=== PATIENT | male | born 1965 | race Caucasian/White ===

== ENCOUNTER 2017-08-29 18:22 | Emergency (ER) | payer SELFPAY ==
[2017-08-29] MEDS ORDERED: NA CHLORIDE 0.9% 1,000 ML ONE (18:36)
[2017-08-29 18:51] LABS: Absolute Lymphocytes (CBC) 2.1 K/uL (0.7-4.9); Absolute Monocytes 0.5 K/uL (0.1-1.3); Absolute Neutrophil 5.3 K/uL (1.8-8.0); Basophils % 0.6 % (0-1.3); Eosinophils % 0.7 % (0-4.4); Hematocrit 48.8 % (39.6-49.0); Lymphocytes % 25.8 % (15.3-44.8); MCH 30.9 pg (27.0-35.0); MCV 91.7 fL (80-100); MPV 7.8 fL (7.6-11.3); Monocytes % 6.5 % (3.3-12.3); RBC Red Blood Cell Count 5.32 M/uL (4.33-5.43)
[2017-08-29 19:02] LABS: BUN Blood Urea Nitrogen 19 mg/dL (7-18); Bicarbonate 23 mmol/L (21-32); Glucose Level 97 mg/dL (74-106); Potassium 3.7 mmol/L (3.5-5.1); Sodium Level 139 mmol/L (136-145)
--- NOTE | 2017-08-29 19:09 | RAD REPORT ---
EXAM DESCRIPTION: RAD - Chest Single View - 08/29/2017 6:53 pm CLINICAL HISTORY: CHEST PAIN Chest pain. COMPARISON: No comparisons FINDINGS: Portable technique limits examination quality. The lungs are grossly clear. The heart is normal in size. No displaced fractures. IMPRESSION: No acute intrathoracic process suspected.
[2017-08-29 19:52] LABS: Urine Blood NEGATIVE (NEG); Urine Glucose NEGATIVE (NEG); Urine Protein NEGATIVE (NEG)
[2017-08-29] MEDS ORDERED: MORPHINE 4 MG/ML SYR ONE (20:33)
[2017-08-29] MEDS ORDERED: ONDANSETRON 4 MG/2 ML VIAL ONE (20:33)
--- NOTE | 2017-08-29 21:14 | EDPHYS ---
Physician Documentation [facility] Name: Brennan Holguin Age: 52 yrs Sex: Male : 1965 Arrival Date: 08/29/2017 Time: 18:23 Bed 7 Private MD: ED Physician Ayo Concepcion HPI: 08/29 21:08 This 52 yrs old Male presents to ER via EMS with complaints of Chest Pain > gs 32 y/o. 21:08 The patient or guardian complains of pain, that is acute. left shoulder. Onset: The gs symptoms/episode began/occurred just prior to arrival, 2 hour(s) ago. Modifying factors: the symptoms are alleviated by nothing. The symptoms are aggravated by lifting weight. Associated signs and symptoms: Pertinent positives: chest pain. Severity of symptoms: At their worst the symptoms were moderate, in the emergency department the symptoms have resolved. The patient has not experienced similar symptoms in the past. Historical: - Allergies: 18:30 No Known Allergies; tw2 - Home Meds: 18:30 None [Active]; tw2 - PMHx: 18:30 None; tw2 - PSHx: 18:30 None; tw2 - Immunization history:: Adult Immunizations up to date. - Social history:: Smoking status: Patient uses tobacco products, smokes one pack cigarettes per day. Patient uses alcohol, on a daily basis. patient/guardian reports recent binge of alcohol consumption. Smoking status: Patient uses tobacco products, smokes one pack cigarettes per day. - Ebola Screening: : Patient denies travel to an Ebola-affected area in the 21 days before illness onset. ROS: 21:08 Cardiovascular: Positive for chest pain. gs 21:08 Respiratory: Negative for pleurisy, shortness of breath. 21:08 All other systems are negative. Exam: 21:08 Head/Face: Normocephalic, atraumatic. Eyes: Pupils equal round and reactive to light, gs extra-ocular motions intact. Lids and lashes normal. Conjunctiva and sclera are non-icteric and not injected. Cornea within normal limits. Periorbital areas with no swelling, redness, or edema. ENT: Nares patent. No nasal discharge, no septal abnormalities noted. Tympanic membranes are normal and external auditory canals are clear. Oropharynx with no redness, swelling, or masses, exudates, or evidence of obstruction, uvula midline. Mucous membranes moist. Neck: Trachea midline, no thyromegaly or masses palpated, and no cervical lymphadenopathy. Supple, full range of motion without nuchal rigidity, or vertebral point tenderness. No Meningismus. Chest/axilla: Normal chest wall appearance and motion. Nontender with no deformity. No lesions are appreciated. Cardiovascular: Regular rate and rhythm with a normal S1 and S2. No gallops, murmurs, or rubs. Normal PMI, no JVD. No pulse deficits. Respiratory: Lungs have equal breath sounds bilaterally, clear to auscultation and percussion. No rales, rhonchi or wheezes noted. No increased work of breathing, no retractions or nasal flaring. Abdomen/GI: Soft, non-tender, with normal bowel sounds. No distension or tympany. No guarding or rebound. No evidence of tenderness throughout. Back: No spinal tenderness. No costovertebral tenderness. Full range of motion. Skin: Warm, dry with normal turgor. Normal color with no rashes, no lesions, and no evidence of cellulitis. MS/ Extremity: Pulses equal, no cyanosis. Neurovascular intact. Full, normal range of motion. Neuro: Awake and alert, GCS 15, oriented to person, place, time, and situation. Cranial nerves II-XII grossly intact. Motor strength 5/5 in all extremities. Sensory grossly intact. Cerebellar exam normal. Normal gait. 21:08 Constitutional: The patient appears alert, awake. 21:08 ECG was reviewed by the Attending Physician. Vital Signs: 18:26 BP 136 / 90; Pulse 85; Resp 18; Temp 98.1(O); Pulse Ox 93% on R/A; Weight 95.25 kg (R); tw2 Height 5 ft. 11 in. (180.34 cm); Pain 2/10; 18:43 BP 135 / 94; Pulse 79; Resp 17; Pulse Ox 94% on R/A; tw2 19:19 BP 120 / 87; Pulse 85; Resp 18; Pulse Ox 98% on R/A; ea 20:30 BP 128 / 82; Pulse 75; Resp 18; Pulse Ox 98% ; Pain 0/10; ea 21:15 BP 124 / 77; Pulse 74; Resp 18; Temp 98(O); Pulse Ox 99% on R/A; Pain 0/10; ea 18:26 Body Mass Index 29.29 (95.25 kg, 180.34 cm) tw2 MDM: 18:39 Patient medically screened. 21:08 Differential diagnosis: shoulder pain, mi, chest wall pain. Data reviewed: vital signs, gs nurses notes. Response to treatment: the patient's symptoms have resolved after treatment, and as a result, I will discharge patient. 08/29 18:30 Order name: Basic Metabolic Panel 08/29 18:30 Order name: CBC with Diff 08/29 18:30 Order name: Troponin (emerg Dept Use Only) 08/29 18:30 Order name: Basic Metabolic Panel; Complete Time: 19:11 EDMS 08/29 18:30 Order name: CBC with Automated Diff; Complete Time: 19:11 EDGA 08/29 18:30 Order name: Troponin (Emerg Dept Use Only); Complete Time: 19:11 EDMS 08/29 18:30 Order name: XRAY Chest (1 view); Complete Time: 19:11 08/29 18:30 Order name: EKG; Complete Time: 18:30 08/29 18:30 Order name: Cardiac monitoring; Complete Time: 18:31 08/29 18:30 Order name: EKG - Nurse/Tech; Complete Time: 18:31 08/29 18:30 Order name: IV Saline Lock; Complete Time: 18:41 08/29 19:38 Order name: Urine Dipstick--Ancillary (enter results); Complete Time: 19:59 [facility] 08/29 19:59 Order name: Troponin I: at 2030; Complete Time: 21:11 08/29 18:30 Order name: Labs collected and sent; Complete Time: 18:41 08/29 18:30 Order name: O2 Per Protocol; Complete Time: 18:31 08/29 18:30 Order name: O2 Sat Monitoring; Complete Time: 18:31 08/29 18:30 Order name: Urine Dipstick-Ancillary (obtain specimen); Complete Time: 19:35 gs EC:08 Rate is 83 beats/min. Rhythm is regular. CT interval is normal. QRS interval is normal. gs QT interval is normal. T waves are Normal. No ST changes noted. Clinical impression: Normal ECG. Interpreted by me. Administered Medications: 18:41 Drug: NS 0.9% 1000 ml Route: IV; Rate: 1 bolus; Site: right antecubital; tw2 20:10 Follow up: Response: No adverse reaction; IV Status: Completed infusion ea Disposition: 08/29/17 21:14 Discharged to Home. Impression: Chest pain, unspecified. - Condition is Stable. - Discharge Instructions: Nonspecific Chest Pain. - Work release form, Medication Reconciliation Form, Thank You Letter, Antibiotic Education, Prescription Opioid Use form. - Follow up: Private Physician; When: 2 - 3 days; Reason: Re-evaluation by your physician. Signatures: Dispatcher [employer] EDDee Brown RN RN tw2 Alicja Bond RN RN Ayo Potts MD MD Corrections: (The following items were deleted from the chart) 21:39 21:14 08/29/2017 21:14 Discharged to Home. Impression: Chest pain, unspecified. ea Condition is Stable. Forms are Medication Reconciliation Form, Thank You Letter, Antibiotic Education, Prescription Opioid Use. Follow up: Private Physician; When: 2 - 3 days; Reason: Re-evaluation by your physician. gs
--- NOTE | 2017-08-29 21:14 | ER ---
Nurse's Notes [facility] Name: Brennan Holguin Age: 52 yrs Sex: Male : 1965 Arrival Date: 08/29/2017 Time: 18:23 Bed 7 Private MD: Diagnosis: Chest pain, unspecified Presentation: 08/29 18:24 Presenting complaint: EMS states: pt initially c/o chest pain, sharp pressure to the tw2 left side with no radiation, was 8/10 he did admit to drinking what he said "a lot of vodka last night", denies drug use, upon arrival to ER states no chest pain vs stable, 90 mg/dL BGL 172/85. Transition of care: patient was not received from another setting of care. Onset of symptoms was August 29, 2017. Care prior to arrival: None. 18:24 Method Of Arrival: EMS: [facility] tw2 18:24 Acuity: VIKY 3 tw2 18:42 Risk Assessment: Do you want to hurt yourself or someone else? Patient reports no tw2 desire to harm self or others. Initial Sepsis Screen: Does the patient meet any 2 criteria? No. Patient's initial sepsis screen is negative. Does the patient have a suspected source of infection? No. Patient's initial sepsis screen is negative. Historical: - Allergies: 18:30 No Known Allergies; tw2 - Home Meds: 18:30 None [Active]; tw2 - PMHx: 18:30 None; tw2 - PSHx: 18:30 None; tw2 - Immunization history:: Adult Immunizations up to date. - Social history:: Smoking status: Patient uses tobacco products, smokes one pack cigarettes per day. Patient uses alcohol, on a daily basis. patient/guardian reports recent binge of alcohol consumption. Smoking status: Patient uses tobacco products, smokes one pack cigarettes per day. - Ebola Screening: : Patient denies travel to an Ebola-affected area in the 21 days before illness onset. Screenin:28 Abuse screen: Denies threats or abuse. Nutritional screening: No deficits noted. tw2 Tuberculosis screening: No symptoms or risk factors identified. 18:42 Fall Risk None identified. tw2 Assessment: 18:27 General: Appears in no apparent distress. unkempt, Behavior is calm, cooperative, tw2 appropriate for age. Pain: Complains of pain in abdomen. Neuro: Level of Consciousness is awake, alert, obeys commands, Oriented to person, place, time, situation. Cardiovascular: Heart tones S1 S2 Capillary refill < 3 seconds Patient's skin is warm and dry. Respiratory: Airway is patent Respiratory effort is even, unlabored, Respiratory pattern is regular, symmetrical, Breath sounds are clear bilaterally. GI: Abdomen is flat, Bowel sounds present X 4 quads. Reports lower abdominal pain, upper abdominal pain, nausea. : No signs and/or symptoms were reported regarding the genitourinary system. EENT: No signs and/or symptoms were reported regarding the EENT system. Derm: Skin temperature is warm. Musculoskeletal: Range of motion: intact in all extremities. 19:11 General: Appears in no apparent distress. Behavior is calm, cooperative, appropriate ea for age. Pain: Complains of pain in right upper quadrant and left upper quadrant Pain does not radiate. Pain currently is 3 out of 10 on a pain scale. Quality of pain is described as aching. Neuro: Level of Consciousness is awake, alert, obeys commands, Oriented to person, place, time, situation. Cardiovascular: Heart tones S1 S2 present Patient's skin is warm and dry. Respiratory: Airway is patent Respiratory effort is even, unlabored, Respiratory pattern is regular, symmetrical, Breath sounds are clear bilaterally. GI: Abdomen is flat, Bowel sounds present X 4 quads. Reports upper abdominal pain. : No signs and/or symptoms were reported regarding the genitourinary system. EENT: No signs and/or symptoms were reported regarding the EENT system. Derm: Skin is pink, warm \\T\\ dry. Skin temperature is warm. Musculoskeletal: Circulation, motion, and sensation intact. 20:00 Reassessment: Patient and/or family updated on plan of care and expected duration. Pain ea level reassessed. Patient is alert, oriented x 3, equal unlabored respirations, skin warm/dry/pink. 21:30 Reassessment: Patient and/or family updated on plan of care and expected duration. Pain ea level reassessed. Patient is alert, oriented x 3, equal unlabored respirations, skin warm/dry/pink. Discharge instruction given to patient, verbalized the understanding of instruction. Vital Signs: 18:26 BP 136 / 90; Pulse 85; Resp 18; Temp 98.1(O); Pulse Ox 93% on R/A; Weight 95.25 kg (R); tw2 Height 5 ft. 11 in. (180.34 cm); Pain 2/10; 18:43 BP 135 / 94; Pulse 79; Resp 17; Pulse Ox 94% on R/A; tw2 19:19 BP 120 / 87; Pulse 85; Resp 18; Pulse Ox 98% on R/A; ea 20:30 BP 128 / 82; Pulse 75; Resp 18; Pulse Ox 98% ; Pain 0/10; ea 21:15 BP 124 / 77; Pulse 74; Resp 18; Temp 98(O); Pulse Ox 99% on R/A; Pain 0/10; ea 18:26 Body Mass Index 29.29 (95.25 kg, 180.34 cm) tw2 ED Course: 18:23 Patient arrived in ED. tw2 18:24 Dee Klein RN is Primary Nurse. tw2 18:24 Ayo Concepcion MD is Attending Physician. gs 18:26 Triage completed. tw2 18:26 Arm band placed on. tw2 18:28 Placed in gown. Bed in low position. shelter monitor on. Pulse ox on. NIBP on. tw2 18:38 Inserted saline lock: 20 gauge in right antecubital area, using aseptic technique. tw2 Blood collected. 18:49 X-ray completed. Portable x-ray completed in exam room. Patient tolerated procedure mh1 well. 18:50 XRAY Chest (1 view) In Process Unspecified. EDMS 18:56 Report given to TAI Lora. tw2 21:35 No provider procedures requiring assistance completed. IV discontinued, intact, ea bleeding controlled, No redness/swelling at site. Pressure dressing applied. Administered Medications: 18:41 Drug: NS 0.9% 1000 ml Route: IV; Rate: 1 bolus; Site: right antecubital; tw2 20:10 Follow up: Response: No adverse reaction; IV Status: Completed infusion ea Outcome: 21:14 Discharge ordered by . gs 21:35 Discharged to home ambulatory, with significant other. ea 21:35 Condition: improved 21:35 Discharge instructions given to patient, Instructed on discharge instructions, follow up and referral plans. Demonstrated understanding of instructions, follow-up care. 21:39 Patient left the ED. ea Signatures: Dispatcher [employer] EDMS Sathish Nadia [facility] Dee Klein RN RN tw2 Alicja Bond RN RN Ayo Potts MD MD gs Corrections: (The following items were deleted from the chart) 18:43 18:29 Pedi Fall Risk Total Score: 0-1 Points : Low Risk for Falls. tw2 tw
--- NOTE | 2017-08-30 09:24 | EKG ---
Test Date: 2017-08-29 Test Time: 18:31:00 Tobacco Drying Machine Operator: EDUIN MEASUREMENT RESULTS: Intervals: Rate: 83 UT: 148 QRSD: 92 QT: 384 QTc: 451 Bailey: P: 63 UT: 148 QRS: -16 T: 16 INTERPRETIVE STATEMENTS: Normal sinus rhythm Normal ECG No previous ECG available for comparison Electronically Signed On 08-30-17 09:23:12 CDT by Martín Kelly
== END 2017-08-29 21:39 | disposition home or self-care (01) ==
LOC: EDBD 18:22 → ER 18:22
DX: R07.9 Chest pain, unspecified (principal); F17.210 Nicotine dependence, cigarettes, uncomplicated
CPT/HCPCS: 36415; 71045; 80048; 81003; 84484; 85025; 93005; 96360; 99284; J2405; J7030

== ENCOUNTER 2020-05-08 22:07 | Emergency (ER) | payer SELFPAY ==
--- OUTSIDE RECORDS SUMMARY | 2020-05-08 22:09 | XMS REPORT | Continuity of Care Document ---
:1965 Author Organization [facility] t Address [address] [place] [address] [place] [id number] Care Team Providers Name Role Phone Unavailable Unavailable Unavailable Problems This patient has no known problems. Allergies, Adverse Reactions, Alerts This patient has no known allergies or adverse reactions. Medications This patient has no known medications. Procedures This patient has no known procedures. Results This patient has no known results.
[2020-05-08] MEDS ORDERED: Ringers Lactate 1,000 ML IV ONE (22:41)
[2020-05-08 22:55] LABS: Absolute Lymphocytes (CBC) 1.3 K/uL (0.7-4.9); Basophils % 0.6 % (0-1.3); Hematocrit 50.8 % (39.6-49.0); MPV 7.7 fL (7.6-11.3); Protime INR 1.19; RBC Red Blood Cell Count 5.45 M/uL (4.33-5.43)
[2020-05-08 23:21] LABS: ALT/SGPT 172 U/L (12-78); AST/SGOT 222 U/L (15-37); Albumin 3.9 g/dL (3.4-5.0); Alkaline Phosphatase 94 U/L (45-117); BUN Blood Urea Nitrogen 19 mg/dL (7-18); Bicarbonate 27 mmol/L (21-32); Bilirubin Direct 0.4 mg/dL (0-0.2); Bilirubin Total 1.8 mg/dL (0.2-1.0); Creatine Phosphokinase 105 U/L (39-308); Glucose Level 164 mg/dL (74-106); Potassium 3.4 mmol/L (3.5-5.1); Protein, Total 7.3 g/dL (6.4-8.2); Sodium Level 141 mmol/L (136-145)
[2020-05-08] MEDS ORDERED: DIAZEPAM 10 MG/2 ML INJ SYRINGE ONE (23:44)
--- NOTE | 2020-05-08 23:47 | EDPHYS ---
Physician Documentation [facility] Name: Brennan Holguin Age: 54 yrs Sex: Male : 1965 Arrival Date: 05/08/2020 Time: 22:08 Bed 15 Private MD: ED Physician Micheal Dinero HPI: 05/08 22:14 This 54 yrs old Male presents to ER via Unassigned with complaints of rn dehydration. 22:14 Reports feels dehydrated, has been drinking heavily for 4 days without food or water, rn is alcoholic, has been in rehabilitation program before, told had elevated liver enzymes in past, continues to drink. Reports last drink just before EMS picked him up.. Onset: The symptoms/episode began/occurred at an unknown time. Severity of symptoms: At their worst the symptoms were moderate in the emergency department the symptoms are unchanged. The patient has experienced similar episodes in the past. The patient has not recently seen a physician. Historical: - Allergies: 22:08 No Known Allergies; jb4 - Home Meds: 22:08 None [Active]; jb4 - PMHx: 22:08 Alcoholism; tremors; Hypertension; jb4 - PSHx: 22:08 Appendectomy; HALIMA legs; jb4 - Immunization history:: Adult Immunizations up to date. - Social history:: Smoking status: Patient reports the use of cigarette tobacco products, smokes two packs cigarettes per day. Patient uses alcohol, patient/guardian reports recent binge of alcohol consumption. Patient/guardian denies using street drugs. - Family history:: not pertinent. - Hospitalizations: : No recent hospitalization is reported. ROS: 22:14 Constitutional: Negative for fever, chills, and weight loss, Eyes: Negative for injury, rn pain, redness, and discharge, Neck: Negative for injury, pain, and swelling, Cardiovascular: Negative for chest pain, palpitations, and edema, Respiratory: Negative for shortness of breath, cough, wheezing, and pleuritic chest pain, Abdomen/GI: Negative for abdominal pain, nausea, vomiting, diarrhea, and constipation, Back: Negative for injury and pain, : + dark urine MS/Extremity: Negative for injury and deformity, Skin: Negative for injury, rash, and discoloration, Neuro: Negative for headache, numbness, tingling, and seizure. 22:14 All other systems are negative. rn Exam: 22:14 Constitutional: This is a well developed, well nourished patient who is awake, alert, rn and in no acute distress. Smells of ETOH. Head/Face: Normocephalic, atraumatic. Eyes: Pupils equal round and reactive to light, extra-ocular motions intact. Lids and lashes normal. Conjunctiva and sclera are non-icteric and not injected. Cornea within normal limits. Periorbital areas with no swelling, redness, or edema. ENT: dry MM Cardiovascular: Tachycardic, regular. No pulse deficits. Respiratory: No increased work of breathing, no retractions or nasal flaring. Abdomen/GI: soft, non-tender Skin: Warm, dry MS/ Extremity: Pulses equal, no cyanosis. Neuro: Awake and alert, GCS 15, oriented to person, place, time, and situation. Cranial nerves II-XII grossly intact. Motor strength 5/5 in all extremities. Sensory grossly intact. No gross tremors. Vital Signs: 22:08 BP 130 / 92; Pulse 103; Resp 18; Pulse Ox 95% on R/A; Weight 102.06 kg (R); Height 5 jb4 ft. 11 in. (180.34 cm) (R); Pain 0/10; 23:00 BP 126 / 94; Pulse 83; Resp 16; Pulse Ox 95% on R/A; jb4 0313 00:00 BP 132 / 82; Pulse 96; Resp 16; Pulse Ox 96% on R/A; jb4 01:22 BP 135 / 94; Pulse 83; Resp 16; Pulse Ox 96% on R/A; jb4 05/08 22:08 Body Mass Index 31.38 (102.06 kg, 180.34 cm) jb4 MDM: 05/08 22:12 Patient medically screened. rn 23:44 Differential Diagnosis dehydration, ETOH intoxication, acidosis, relative ETOH rn withdrawal. Data reviewed: vital signs, nurses notes, lab test result(s), and as a result, I will discharge patient. Counseling: I had a detailed discussion with the patient and/or guardian regarding: the historical points, exam findings, and any diagnostic results supporting the discharge/admit diagnosis, lab results, the need for outpatient follow up, to return to the emergency department if symptoms worsen or persist or if there are any questions or concerns that arise at home. Response to treatment: the patient's symptoms have markedly improved after treatment, and as a result, I will discharge patient. Special discussion: I discussed with the patient/guardian in detail that at this point there is no indication for admission to the hospital. It is understood, however, that if the symptoms persist or worsen the patient needs to return immediately for re-evaluation. ED course: Pt with stable vitals, no signs of withdrawal, is getting agitated and requested valium, was given, no acidosis, no kidney failure, has a ride, will dc home, recommend pcp f/u and ETOH rehabilitation program. Return precautions given and understood. . 05/08 22:13 Order name: CBC with Diff rn 05/08 22:13 Order name: Basic Metabolic Panel rn 05/08 22:13 Order name: PT-INR rn 05/08 22:13 Order name: LFT's; Complete Time: 23:24 rn 05/08 22:13 Order name: ETOH Level; Complete Time: 23:24 rn 05/08 22:13 Order name: CK; Complete Time: 23:24 rn 05/08 22:13 Order name: IV Start; Complete Time: 22:49 rn 05/08 22:14 Order name: CBC with Automated Diff; Complete Time: 23:02 EDMS 05/08 22:14 Order name: Basic Metabolic Panel; Complete Time: 23:24 EDMS 05/08 22:14 Order name: Protime (+INR); Complete Time: 23:02 EDMS Administered Medications: 22:30 Drug: Lactated Ringers Solution 1000 ml Route: IV; Rate: 400 ml/hr; Site: right forearm;jb4 05/09 01:09 Follow up: IV Status: Completed infusion; IV Intake: 950ml bb 05/08 23:31 Drug: Valium 10 mg Route: IVP; Site: right forearm; jb4 05/09 00:00 Follow up: Response: No adverse reaction; Marked relief of symptoms jb4 Disposition: 05/08/20 23:47 Discharged to Home. Impression: Alcohol abuse with intoxication, Dehydration. - Condition is Stable. - Discharge Instructions: Alcohol Intoxication, Dehydration, Adult. - Prescriptions for Valium 2 mg Oral Tablet - take 1 tablet by ORAL route every 8 hours As needed Take for signs of alcohol withdrawal; 5 tablet. - Medication Reconciliation Form, Thank You Letter, Antibiotic Education, Prescription Opioid Use form. - Follow up: Private Physician; When: As needed; Reason: Recheck today's complaints, Re-evaluation by your physician. - Problem is chronic. - Symptoms have improved. Signatures: Dispatcher [employer] EDMicheal Paredes MD MD rn Bryson, James, RN RN jb4 Tabitha Canales RN bb Corrections: (The following items were deleted from the chart) 01:53 05/08 23:47 05/08/2020 23:47 Discharged to Home. Impression: Alcohol abuse with jb4 intoxication; Dehydration. Condition is Stable. Forms are Medication Reconciliation Form, Thank You Letter, Antibiotic Education, Prescription Opioid Use. Follow up: Private Physician; When: As needed; Reason: Recheck today's complaints, Re-evaluation by your physician. Problem is chronic. Symptoms have improved. rn
--- NOTE | 2020-05-08 23:47 | ER ---
Nurse's Notes [facility] Name: Brennan Holguin Age: 54 yrs Sex: Male : 1965 Arrival Date: 05/08/2020 Time: 22:08 Bed 15 Private MD: Diagnosis: Alcohol abuse with intoxication;Dehydration Presentation: 05/08 22:08 Chief complaint: EMS states: PT has been drinking multiple pints of 100 proof alcohol jb4 for the past 6 days. Has not had any water or food for the past 4 days. 22:08 Coronavirus screen: Client denies travel out of the [place] in the last 14 days. At this jb4 time, the client does not indicate any symptoms associated with coronavirus-19. Ebola Screen: No symptoms or risks identified at this time. Initial Sepsis Screen: Does the patient meet any 2 criteria? No. Patient's initial sepsis screen is negative. Does the patient have a suspected source of infection? No. Patient's initial sepsis screen is negative. Risk Assessment: Do you want to hurt yourself or someone else? Patient reports no desire to harm self or others. Onset of symptoms was May 02, 2020. Transition of care: patient was not received from another setting of care. 22:08 Method Of Arrival: EMS: [facility] jb4 22:08 Acuity: VIKY 3 jb4 Historical: - Allergies: 22:08 No Known Allergies; jb4 - Home Meds: 22:08 None [Active]; jb4 - PMHx: 22:08 Alcoholism; tremors; Hypertension; jb4 - PSHx: 22:08 Appendectomy; HALIMA legs; jb4 - Immunization history:: Adult Immunizations up to date. - Social history:: Smoking status: Patient reports the use of cigarette tobacco products, smokes two packs cigarettes per day. Patient uses alcohol, patient/guardian reports recent binge of alcohol consumption. Patient/guardian denies using street drugs. - Family history:: not pertinent. - Hospitalizations: : No recent hospitalization is reported. Screenin:08 Abuse screen: Denies threats or abuse. Nutritional screening: No deficits noted. jb4 Tuberculosis screening: No symptoms or risk factors identified. Fall Risk None identified. Assessment: 22:08 General: Appears in no apparent distress. uncomfortable, Behavior is calm, cooperative, jb4 appropriate for age. Pain: Denies pain. Neuro: Level of Consciousness is awake, alert, obeys commands, Oriented to person, place, time, situation. Cardiovascular: Patient's skin is warm and dry. Respiratory: Airway is patent Respiratory effort is even, unlabored, Respiratory pattern is regular, symmetrical. GI: No signs and/or symptoms were reported involving the gastrointestinal system. : No signs and/or symptoms were reported regarding the genitourinary system. EENT: No signs and/or symptoms were reported regarding the EENT system. Derm: Skin is intact, Skin is pink, warm \T\ dry. Musculoskeletal: Circulation, motion, and sensation intact. Range of motion: intact in all extremities. 23:00 Reassessment: Patient appears in no apparent distress at this time. Patient and/or jb4 family updated on plan of care and expected duration. Pain level reassessed. Patient is alert, oriented x 3, equal unlabored respirations, skin warm/dry/pink. 05/09 00:00 Reassessment: Patient appears in no apparent distress at this time. Patient and/or jb4 family updated on plan of care and expected duration. Pain level reassessed. Patient is alert, oriented x 3, equal unlabored respirations, skin warm/dry/pink. 01:30 Reassessment: Patient appears in no apparent distress at this time. Patient and/or jb4 family updated on plan of care and expected duration. Pain level reassessed. Patient is alert, oriented x 3, equal unlabored respirations, skin warm/dry/pink. 01:40 Reassessment: D/c pending ride home. [facility] Vital Signs: 05/08 22:08 BP 130 / 92; Pulse 103; Resp 18; Pulse Ox 95% on R/A; Weight 102.06 kg (R); Height 5 4 ft. 11 in. (180.34 cm) (R); Pain 0/10; 23:00 BP 126 / 94; Pulse 83; Resp 16; Pulse Ox 95% on R/A; jb4 05/09 00:00 BP 132 / 82; Pulse 96; Resp 16; Pulse Ox 96% on R/A; jb4 01:22 BP 135 / 94; Pulse 83; Resp 16; Pulse Ox 96% on R/A; 4 05/08 22:08 Body Mass Index 31.38 (102.06 kg, 180.34 cm) jb4 ED Course: 05/08 22:08 Patient arrived in ED. cl3 22:08 Arm band placed on right wrist. jb4 22:08 Patient has correct armband on for positive identification. Bed in low position. Call jb4 light in reach. Side rails up X 1. Pulse ox on. NIBP on. 22:08 Initial lab(s) drawn, by mo, sent to lab. Inserted saline lock: 18 gauge in right jb4 forearm, using aseptic technique. Blood collected. 22:12 Micheal Dinero MD is Attending Physician. rn 22:17 Vishnu Ramesh RN is Primary Nurse. jb4 22:19 Triage completed. jb4 05/09 01:45 No provider procedures requiring assistance completed. IV discontinued, intact, jb4 bleeding controlled, No redness/swelling at site. Pressure dressing applied. Administered Medications: 05/08 22:30 Drug: Lactated Ringers Solution 1000 ml Route: IV; Rate: 400 ml/hr; Site: right forearm;[facility] 05/09 01:09 Follow up: IV Status: Completed infusion; IV Intake: 950ml 05/08 23:31 Drug: Valium 10 mg Route: IVP; Site: right forearm; 4 05/09 00:00 Follow up: Response: No adverse reaction; Marked relief of symptoms [facility] Intake: 01:09 IV: 950ml; Total: 950ml. Outcome: 05/08 23:47 Discharge ordered by . rn 05/09 01:45 Discharged to home ambulatory. jb4 Condition: stable Discharge instructions given to patient, Instructed on discharge instructions, follow up and referral plans. medication usage, Demonstrated understanding of instructions, follow-up care, medications, Prescriptions given X 1. 01:53 Patient left the ED. jb4 Signatures: Tabitha Canales RN RN bb Micheal Dinero MD MD rn Bryson, James, RN RN jb4 Lewis, Charde 3
[2020-05-09 02:01] VITALS: O2SAT 96
[2020-05-09 02:02] VITALS: BP 135/94
== END 2020-05-09 01:53 | disposition home or self-care (01) ==
LOC: ER 22:07
DX: E86.0 Dehydration (principal); I10 Essential (primary) hypertension; F17.210 Nicotine dependence, cigarettes, uncomplicated
CPT/HCPCS: 36415; 80048; 80076; 80320; 82550; 85025; 85610; 96361; 96374; 99284; J3360; J7120